=== PATIENT | male | born 1945 | race Caucasian/White ===

== ENCOUNTER → 2017-08-24 | Outpatient (CLI) | payer BC ==
[2017-08-24] MEDS: SOD CHLORIDE 0.9% 100 ML (15:50)
[2017-08-24] MEDS: IOHEXOL 100 ML (15:50)
== END | disposition home or self-care (01) ==
LOC: C/S 14:42
DX: I65.22 Occlusion and stenosis of left carotid artery (principal)
CPT/HCPCS: 70498